=== PATIENT | female | born 1995 | race African-American/Black ===

== ENCOUNTER 2016-10-22 19:21 | Emergency (ER) | payer OTHER, SELFPAY ==
[2016-10-22] MEDS ORDERED: METOCLOPRAMIDE INJ 10MG/2ML VIAL (J2765) As Ordered ONE (20:59)
[2016-10-22 21:59] LABS: ANION GAP 11 MEQ/L (8-16); BLOOD UREA NITROGEN 5 MG/DL (7-18); CALCIUM LEVEL 9.4 MG/DL (8.5-10.1); CARBON DIOXIDE LEVEL 24 MEQ/L (21-32); CHLORIDE LEVEL 102 MEQ/L (98-107); CREATININE FOR GFR 0.76 MG/DL (0.55-1.02); GLOMERULAR FILTRATION RATE > 60.0 (>60); GLUCOSE, FASTING 80 MG/DL (70-105); POTASSIUM SERUM 3.4 MEQ/L (3.5-5.1); SODIUM LEVEL 137 MEQ/L (136-145)
--- NOTE | 2016-10-22 23:23 | EDDOCDS ---
Physician Documentation [facility] Name: Deanna Price Age: 21 yrs Sex: Female : 1995 Arrival Date: 10/22/2016 Time: 19:21 Bed I5 / M5 Private MD: Tana [facility] [place] Disposition: 10/22/16 23:01 Discharged to Home/Self Care. Impression: Mild hyperemesis gravidarum. - Condition is Stable. - Discharge Instructions: First Trimester of , Hyperemesis Gravidarum. - Prescriptions for Diclegis 10- 10 mg Oral - take 2 tablets by ORAL route At bedtime; 30 tablet. - Medication Reconciliation, Local Pharmacy Hours form. - Follow up: [facility] [place]; When: Call to arrange an appointment; Reason: Recheck today's complaints, Continuance of care. Follow up: Emergency Department; When: As needed; Reason: Worsening of conditions. - Problem is new. - Symptoms have improved. Historical: - Allergies: Nuts; seafood; - Home Meds: 1. albuterol sulfate 90 mcg/actuation Inhl HFAA 2 puffs every 4-6 hours 2. Vitamin Oral tab 1 tab once daily - PMHx: Asthma; - PSHx: none; - Social history: No barriers to communication noted, The patient speaks fluent Serbian, Speaks appropriately for age, Smoking status: Patient states was never smoker of tobacco. - Family history: Not pertinent. - : The pt / caregiver states he / she is not on anticoagulants. Home medication list is obtained from the patient. - Exposure Risk Screening:: None identified. 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 3 in. (160.02 cm) (R); Pain 3/10; 23:04 BP 122 / 69; Pulse 110; Resp 18; Temp 97.8; Pulse Ox 98% ; Pain 0/10; ajs 19:22 Body Mass Index 35.43 (90.72 kg, 160.02 cm) gr2 MDM: 20:38 IV Saline Lock ordered. ar2 20:38 NS 0.9% 1000 ml IV at bolus once ordered. ar2 20:38 Metoclopramide 10 mg IV at 40 mg/hr once over 15 mins ordered. ar2 20:39 MED Profile Ordered. EDMS 20:39 UA Ordered. EDMS 21:09 Financial registration complete. gjb 21:10 [facility] Payment Agreement was scanned into [employer] and attached to record. gjb 21:39 Fluid Challenge ordered. ar2 22:17 MED Profile Reviewed. ar2 22:17 UA Reviewed. ar2 22:20 Urine Culture Ordered. EDMS Administered Medications: 21:05 Drug: NS 0.9% 1000 ml [sodium chloride 0.9 % intravenous solution] Route: IV; Rate: js15 bolus; Site: left antecubital; 22:30 Follow up: IV Status: Completed infusion; IV Intake: 1000ml js15 21:05 Drug: Metoclopramide 10 mg [metoclopramide 5 mg/mL injection solution] Route: IV; Rate: js15 40 mg/hr; Infused Over: 15 mins; Site: left antecubital; Signatures: Dispatcher [employer] EDOR Patsy Jiménez RN RN jo3 Matteo Arguello PA-C PA-C ar2 Skylar Parker RN RN js15 Marlys Martines The chart was reviewed and I authenticate all verbal orders and agree with the evaluation and treatment provided.Attachments: 21:10 [facility] Payment Agreement gjb MTDD
--- NOTE | 2016-10-22 23:23 | EDDOCDS ---
Nurse's Notes [facility] Name: Deanna Price Age: 21 yrs Sex: Female : 1995 Arrival Date: 10/22/2016 Time: 19:21 Bed I5 / M5 Private MD: [place] [facility] [place]: Mild hyperemesis gravidarum Presentation: 10/22 19:27 Presenting complaint: Patient states: 9 weeks and has had severe morning jo3 sickness. Given Reglan while at home in [place] but it didn't work. Adult Sepsis Screening: The patient does not have new or worsening altered mentation. Patient's respiratory rate is less than 22. Systolic blood pressure is greater than 100. Patient has a qSOFA score of 0- Negative Sepsis Screen. Suicide/Homicide risk assessment- the patient denies having any suicidal and/or homicidal ideations and does not present with any other emotional, behavioral or mental health complaints. Status: The patient is a dependent. Transition of care: patient was not received from another setting of care. 19:27 Acuity: ANDRIY Level 3 jo3 19:27 Method Of Arrival: Walkin/Carried/Asstd jo3 Triage Assessment: 19:31 General: Appears in no apparent distress, Behavior is appropriate for age, cooperative. jo3 HIV screening NA for this visit Offered previously. Neurological: Level of Consciousness is awake, alert, Oriented to person, place, time. Respiratory: Airway is patent Respiratory effort is even, unlabored. Derm: No deficits noted. 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 albuterol sulfate 90 mcg/actuation Inhl HFAA 2 puffs every 4-6 hours 2. Vitamin Oral tab 1 tab once daily - PMHx: Asthma; - PSHx: none; - Social history: No barriers to communication noted, The patient speaks fluent Occitan, Speaks appropriately for age, Smoking status: Patient states was never smoker of tobacco. - Family history: Not pertinent. - : The pt / caregiver states he / she is not on anticoagulants. Home medication list is obtained from the patient. - Exposure Risk Screening:: None identified. Screenin:00 Screening information is obtained from the patient. Fall risk: No risks identified. js15 Assistance ADL's: requires no assistance with activities of daily living. Abuse/DV Screen: The patient / caregiver reports he/she is: not in a situation that causes fear, pain or injury. Nutritional screening: No deficits noted. Advance Directives: There is no active DNR order. home support is adequate. Assessment: 21:00 General: Appears in no apparent distress, Behavior is appropriate for age, cooperative, js15 pleasant. Pain: Denies pain. Neurological: Level of Consciousness is awake, alert, obeys commands, Oriented to person, place, time. Respiratory: Airway is patent Respiratory effort is even, unlabored, Respiratory pattern is regular, symmetrical. GI: Abdomen is non- distended Bowel sounds present X 4 quads. Abd is soft X 4 quads Reports nausea, vomiting. Derm: Skin is normal. 22:20 Reassessment: Patient appears in no apparent distress at this time. Pt sitting up, js15 watching tv and eating diet tray; reports relief of nausea. respirations even and unlabored; skin normal, warm, dry;. 23:19 Reassessment: Patient appears in no apparent distress at this time. Patient denies pain js15 at this time. Patient states feeling better. Patient states symptoms have improved. pt resting on stretcher, respirations even and unlabored; skin normal, warm, dry. Vital Signs: 19:22 BP 121 / 53; Pulse 119; Resp 18 S; Temp 96.4(O); Pulse Ox 98% on R/A; Weight 90.72 kg gr2 (R); Height 5 ft. 3 in. (160.02 cm) (R); Pain 3/10; 23:04 BP 122 / 69; Pulse 110; Resp 18; Temp 97.8; Pulse Ox 98% ; Pain 0/10; ajs 19:22 Body Mass Index 35.43 (90.72 kg, 160.02 cm) gr2 Vitals: 19:22 Log In Time: October 22, 2016 at 19:22. gr2 ED Course: 19:22 Patient visited by Breanna Laurent. gr2 19:22 [place] [facility] [place]ician. gr2 19:22 Patient moved to Waiting gr2 19:24 Patient visited by Breanna Laurent. gr2 19:24 Patient moved to Pre RCE gr2 19:30 Triage Initiated jo3 19:32 Patient visited by Patsy Jiménez RN. jo3 20:10 Patient moved to Triage 3 jf3 20:21 Matteo Arguello PA-C is PHCP. ar2 20:21 Real Mariano DO is Attending Physician. ar2 20:21 Patient visited by Matteo Arguello PA-C. ar2 20:40 Patient moved to I5 / lf1 21:00 The patient / caregiver is instructed regarding the plan of care and ED course. js15 21:00 Inserted saline lock: 20 gauge in left antecubital area The patient tolerated the js15 procedure well. 21:05 UA Sent. js15 21:05 MED Profile Sent. js15 21:06 Patient visited by Skylar Parker RN. js15 21:10 [facility] Payment Agreement was scanned into [employer] and attached to record. gjb 21:51 Patient visited by Skylar Parker RN. js15 22:21 Urine Culture Sent. js15 22:50 Patient visited by Skylar Parker RN. js15 23:01 AMRIK Puentes is Referral Physician. ar2 23:05 Patient visited by Yamileth Cavazos. ajs 23:19 No procedures done that require assistance. js15 Administered Medications: 21:05 Drug: NS 0.9% 1000 ml [sodium chloride 0.9 % intravenous solution] Route: IV; Rate: js15 bolus; Site: left antecubital; 22:30 Follow up: IV Status: Completed infusion; IV Intake: 1000ml js15 21:05 Drug: Metoclopramide 10 mg [metoclopramide 5 mg/mL injection solution] Route: IV; Rate: js15 40 mg/hr; Infused Over: 15 mins; Site: left antecubital; Intake: 22:30 IV: 1000.00ml; Total: 1000.00ml. js15 Order Results: Lab Order: MED Profile; SPEC'M 10/22/16 20:56 Test: GLUCOSE, FASTING; Value: 80; Range: 70-105; Units: MG/DL; Status: F Test: BLOOD UREA NITROGEN; Value: 5; Range: 7-18; Abnormal: Below low normal; Units: MG/DL; Status: F Test: CREATININE FOR GFR; Value: 0.76; Range: 0.55-1.02; Units: MG/DL; Status: F Test: GLOMERULAR FILTRATION RATE; Value: > 60.0; Range: >60; Status: F Test: SODIUM LEVEL; Value: 137; Range: 136-145; Units: MEQ/L; Status: F Test: POTASSIUM SERUM; Value: 3.4; Range: 3.5-5.1; Abnormal: Below low normal; Units: MEQ/L; Status: F Test: CHLORIDE LEVEL; Value: 102; Range: 98-107; Units: MEQ/L; Status: F Test: CARBON DIOXIDE LEVEL; Value: 24; Range: 21-32; Units: MEQ/L; Status: F Test: ANION GAP; Value: 11; Range: 8-16; Units: MEQ/L; Status: F Test: CALCIUM LEVEL; Value: 9.4; Range: 8.5-10.1; Units: MG/DL; Status: F Test Note: ; Units are mL/min/1.73 m2 Chronic Kidney Disease Staging per NKF: Stage I & II GFR >=60 Normal to Mildly Decreased Stage III GFR 30-59 Moderately Decreased Stage IV GFR 15-29 Severely Decreased Stage V GFR <15 Very Little GFR Left ESRD GFR <15 on PV DESIGN ENGINEER Lab Order: UA; SPEC'M 10/22/16 20:56 Test: APPEARANCE, URINE; Value: CLEAR; Range: CLEAR; Status: F Test: COLOR, URINE; Value: EDITA; Range: YELLOW; Status: F Test: PH,URINE; Value: 5.0; Range: 5.0-9.0; Units: UNITS; Status: F Test: SPECIFIC GRAVITY URINE AUTO; Value: 1.021; Range: 1.002-1.035; Status: F Test: PROTEIN, URINE AUTO; Value: 1+; Range: NEGATIVE; Abnormal: Above high normal; Units: mg/dL; Status: F Test: GLUCOSE, URINE (UA) AUTO; Value: NEGATIVE; Range: NEGATIVE; Units: mg/dL; Status: F Test: KETONE, URINE AUTO; Value: 2+; Range: NEGATIVE; Abnormal: Above high normal; Units: mg/dL; Status: F Test: UROBILINOGEN, URINE AUTO; Value: 4.0; Range: 0.0-2.0; Abnormal: Above high normal; Units: mg/dL; Status: F Test: BILIRUBIN, URINE AUTO; Value: 1+; Range: NEGATIVE; Abnormal: Above high normal; Status: F Test: NITRITE, URINE AUTO; Value: NEGATIVE; Range: NEGATIVE; Status: F Test: LEUKOCYTE ESTERASE, URINE AUTO; Value: NEGATIVE; Range: NEGATIVE; Status: F Test: BLOOD, URINE BLOOD; Value: NEGATIVE; Range: NEGATIVE; Status: F Test: WBC, URINE AUTO; Value: 2; Range: 0-3; Units: /HPF; Status: F Test: RBC, URINE AUTO; Value: 1; Range: 0-3; Units: /HPF; Status: F Test: BACTERIA, URINE AUTO; Value: 1+; Range: NEGATIVE; Abnormal: Above high normal; Status: F Test: SQUAMOUS EPITHELIAL CELL UR AU; Value: 1; Range: 0-6; Units: /HPF; Status: F Test: MUCUS, URINE; Value: SMALL; Range: NEGATIVE; Status: F Test: HYALINE CAST, URINE AUTO; Value: 0; Range: 0-1; Units: /LPF; Status: F Outcome: 23:01 Discharge ordered by Provider. ar2 23:19 Discharge Assessment: Patient awake, alert and oriented x 3. No cognitive and/or js15 functional deficits noted. Patient verbalized understanding of disposition instructions. patient administered narcotics - no. The following High Risk Discharge criteria are identified: None. Discharged to home ambulatory. Condition: stable. Discharge instructions given to patient, Instructed on discharge instructions, follow up and referral plans. medication usage, Demonstrated understanding of instructions, medications, Pt was receptive of discharge instructions/ teaching. Prescriptions given X 1. No special radiology studies were completed. Property sent home with patient. 23:22 Patient left the ED. js15 Signatures: Patsy JiménezRN RN [email or web address] Tarsha Bowers,RN RN lf1 Matteo Arguello PA-C PANicholasC ar2 Yamileth Cavazos Gainslee gr2 Skylar Parker RN RN js15 Anshu Steele,RN RN jf3 Marlys Martines MTDD
--- NOTE | 2016-10-25 00:23 | EDDOCDS ---
Nurse's Notes [facility] Name: Deanna Price Age: 21 yrs Sex: Female : 1995 Arrival Date: 10/22/2016 Time: 19:21 Bed I5 / M5 Private MD: Tana [facility] [place] Diagnosis: Mild hyperemesis gravidarum Presentation: 10/22 19:27 Presenting complaint: Patient states: 9 weeks and has had severe morning jo3 sickness. Given Reglan while at home in [place] but it didn't work. Adult Sepsis Screening: The patient does not have new or worsening altered mentation. Patient's respiratory rate is less than 22. Systolic blood pressure is greater than 100. Patient has a qSOFA score of 0- Negative Sepsis Screen. Suicide/Homicide risk assessment- the patient denies having any suicidal and/or homicidal ideations and does not present with any other emotional, behavioral or mental health complaints. Status: The patient is a dependent. Transition of care: patient was not received from another setting of care. 19:27 Acuity: ANRDIY Level 3 jo3 19:27 Method Of Arrival: Walkin/Carried/Asstd jo3 Triage Assessment: 19:31 General: Appears in no apparent distress, Behavior is appropriate for age, cooperative. jo3 HIV screening NA for this visit Offered previously. Neurological: Level of Consciousness is awake, alert, Oriented to person, place, time. Respiratory: Airway is patent Respiratory effort is even, unlabored. Derm: No deficits noted. 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 albuterol sulfate 90 mcg/actuation Inhl HFAA 2 puffs every 4-6 hours 2. Vitamin Oral tab 1 tab once daily - PMHx: Asthma; - PSHx: none; - Social history: No barriers to communication noted, The patient speaks fluent Tajik, Speaks appropriately for age, Smoking status: Patient states was never smoker of tobacco. - Family history: Not pertinent. - : The pt / caregiver states he / she is not on anticoagulants. Home medication list is obtained from the patient. - Exposure Risk Screening:: None identified. Screenin:00 Screening information is obtained from the patient. Fall risk: No risks identified. js15 Assistance ADL's: requires no assistance with activities of daily living. Abuse/DV Screen: The patient / caregiver reports he/she is: not in a situation that causes fear, pain or injury. Nutritional screening: No deficits noted. Advance Directives: There is no active DNR order. home support is adequate. Assessment: 21:00 General: Appears in no apparent distress, Behavior is appropriate for age, cooperative, js15 pleasant. Pain: Denies pain. Neurological: Level of Consciousness is awake, alert, obeys commands, Oriented to person, place, time. Respiratory: Airway is patent Respiratory effort is even, unlabored, Respiratory pattern is regular, symmetrical. GI: Abdomen is non- distended Bowel sounds present X 4 quads. Abd is soft X 4 quads Reports nausea, vomiting. Derm: Skin is normal. 22:20 Reassessment: Patient appears in no apparent distress at this time. Pt sitting up, js15 watching tv and eating diet tray; reports relief of nausea. respirations even and unlabored; skin normal, warm, dry;. 23:19 Reassessment: Patient appears in no apparent distress at this time. Patient denies pain js15 at this time. Patient states feeling better. Patient states symptoms have improved. pt resting on stretcher, respirations even and unlabored; skin normal, warm, dry. Vital Signs: 19:22 BP 121 / 53; Pulse 119; Resp 18 S; Temp 96.4(O); Pulse Ox 98% on R/A; Weight 90.72 kg gr2 (R); Height 5 ft. 3 in. (160.02 cm) (R); Pain 3/10; 23:04 BP 122 / 69; Pulse 110; Resp 18; Temp 97.8; Pulse Ox 98% ; Pain 0/10; ajs 19:22 Body Mass Index 35.43 (90.72 kg, 160.02 cm) gr2 Vitals: 19:22 Log In Time: October 22, 2016 at 19:22. gr2 ED Course: 19:22 Patient visited by Breanna Laurent. gr2 19:22 Tana [facility] [place] is Private Physician. gr2 19:22 Patient moved to Waiting gr2 19:24 Patient visited by Breanna Laurent. gr2 19:24 Patient moved to Pre RCE gr2 19:30 Triage Initiated jo3 19:32 Patient visited by Patsy Jiménez RN. jo3 20:10 Patient moved to Triage 3 jf3 20:21 Matteo Arguello PA-C is PHCP. ar2 20:21 Real Mariano DO is Attending Physician. ar2 20:21 Patient visited by Matteo Arguello PA-C. ar2 20:40 Patient moved to I5 / lf1 21:00 The patient / caregiver is instructed regarding the plan of care and ED course. js15 21:00 Inserted saline lock: 20 gauge in left antecubital area The patient tolerated the js15 procedure well. 21:05 UA Sent. js15 21:05 MED Profile Sent. js15 21:06 Patient visited by Skylar Parker RN. js15 21:10 [facility] Payment Agreement was scanned into [employer] and attached to record. gjb 21:51 Patient visited by Skylar Parker RN. js15 22:21 Urine Culture Sent. js15 22:50 Patient visited by Skylar Parker RN. js15 23:01 AMRIK Puentes is Referral Physician. ar2 23:05 Patient visited by Yamileth Cavazos. ajs 23:19 No procedures done that require assistance. js15 02 12:13 T-Sheet-- Draft Copy was scanned into [employer] and attached to record. gb Administered Medications: 10/22 21:05 Drug: NS 0.9% 1000 ml [sodium chloride 0.9 % intravenous solution] Route: IV; Rate: js15 bolus; Site: left antecubital; 22:30 Follow up: IV Status: Completed infusion; IV Intake: 1000ml js15 21:05 Drug: Metoclopramide 10 mg [metoclopramide 5 mg/mL injection solution] Route: IV; Rate: js15 40 mg/hr; Infused Over: 15 mins; Site: left antecubital; Intake: 22:30 IV: 1000.00ml; Total: 1000.00ml. js15 Order Results: Lab Order: MED Profile; SPEC'M 10/22/16 20:56 Test: GLUCOSE, FASTING; Value: 80; Range: 70-105; Units: MG/DL; Status: F Test: BLOOD UREA NITROGEN; Value: 5; Range: 7-18; Abnormal: Below low normal; Units: MG/DL; Status: F Test: CREATININE FOR GFR; Value: 0.76; Range: 0.55-1.02; Units: MG/DL; Status: F Test: GLOMERULAR FILTRATION RATE; Value: > 60.0; Range: >60; Status: F Test: SODIUM LEVEL; Value: 137; Range: 136-145; Units: MEQ/L; Status: F Test: POTASSIUM SERUM; Value: 3.4; Range: 3.5-5.1; Abnormal: Below low normal; Units: MEQ/L; Status: F Test: CHLORIDE LEVEL; Value: 102; Range: 98-107; Units: MEQ/L; Status: F Test: CARBON DIOXIDE LEVEL; Value: 24; Range: 21-32; Units: MEQ/L; Status: F Test: ANION GAP; Value: 11; Range: 8-16; Units: MEQ/L; Status: F Test: CALCIUM LEVEL; Value: 9.4; Range: 8.5-10.1; Units: MG/DL; Status: F Test Note: ; Units are mL/min/1.73 m2 Chronic Kidney Disease Staging per NKF: Stage I & II GFR >=60 Normal to Mildly Decreased Stage III GFR 30-59 Moderately Decreased Stage IV GFR 15-29 Severely Decreased Stage V GFR <15 Very Little GFR Left ESRD GFR <15 on CASINO SURVEILLANCE OFFICER Lab Order: UA; SPEC'M 10/22/16 20:56 Test: APPEARANCE, URINE; Value: CLEAR; Range: CLEAR; Status: F Test: COLOR, URINE; Value: EDITA; Range: YELLOW; Status: F Test: PH,URINE; Value: 5.0; Range: 5.0-9.0; Units: UNITS; Status: F Test: SPECIFIC GRAVITY URINE AUTO; Value: 1.021; Range: 1.002-1.035; Status: F Test: PROTEIN, URINE AUTO; Value: 1+; Range: NEGATIVE; Abnormal: Above high normal; Units: mg/dL; Status: F Test: GLUCOSE, URINE (UA) AUTO; Value: NEGATIVE; Range: NEGATIVE; Units: mg/dL; Status: F Test: KETONE, URINE AUTO; Value: 2+; Range: NEGATIVE; Abnormal: Above high normal; Units: mg/dL; Status: F Test: UROBILINOGEN, URINE AUTO; Value: 4.0; Range: 0.0-2.0; Abnormal: Above high normal; Units: mg/dL; Status: F Test: BILIRUBIN, URINE AUTO; Value: 1+; Range: NEGATIVE; Abnormal: Above high normal; Status: F Test: NITRITE, URINE AUTO; Value: NEGATIVE; Range: NEGATIVE; Status: F Test: LEUKOCYTE ESTERASE, URINE AUTO; Value: NEGATIVE; Range: NEGATIVE; Status: F Test: BLOOD, URINE BLOOD; Value: NEGATIVE; Range: NEGATIVE; Status: F Test: WBC, URINE AUTO; Value: 2; Range: 0-3; Units: /HPF; Status: F Test: RBC, URINE AUTO; Value: 1; Range: 0-3; Units: /HPF; Status: F Test: BACTERIA, URINE AUTO; Value: 1+; Range: NEGATIVE; Abnormal: Above high normal; Status: F Test: SQUAMOUS EPITHELIAL CELL UR AU; Value: 1; Range: 0-6; Units: /HPF; Status: F Test: MUCUS, URINE; Value: SMALL; Range: NEGATIVE; Status: F Test: HYALINE CAST, URINE AUTO; Value: 0; Range: 0-1; Units: /LPF; Status: F Lab Order: Urine Culture; SPEC'M 10/22/16 20:54 Test: URINE CULTURE; Value: <EXTERNAL COMMENT eCWMed> FULL REPORT IN LAB NOTES (eCW and [facility]ent).; Status: F Test: URINE CULTURE; Value: URINE CULTURE RESULT NO GROWTH; Status: F Outcome: 23:01 Discharge ordered by Provider. ar2 23:19 Discharge Assessment: Patient awake, alert and oriented x 3. No cognitive and/or js15 functional deficits noted. Patient verbalized understanding of disposition instructions. patient administered narcotics - no. The following High Risk Discharge criteria are identified: None. Discharged to home ambulatory. Condition: stable. Discharge instructions given to patient, Instructed on discharge instructions, follow up and referral plans. medication usage, Demonstrated understanding of instructions, medications, Pt was receptive of discharge instructions/ teaching. Prescriptions given X 1. No special radiology studies were completed. Property sent home with patient. 23:22 Patient left the ED. js15 Signatures: Orly Edmondson, Patsy Arthur RN RN [email or web address] Tarsha Bowers,RN RN lf1 Matteo Arguello, PA-C PA-C alejo2 Yamileth Cavazos Gainslee gr2 Skylar ParkerRN RN js15 Anshu Steele,RN RN jf3 Marlys Martines Chart Complete MTDD
--- NOTE | 2016-10-25 00:23 | EDDOCDS ---
Physician Documentation [facility] Name: Deanna Price Age: 21 yrs Sex: Female : 1995 Arrival Date: 10/22/2016 Time: 19:21 Bed I5 / M5 Private MD: Tana [facility] [place] Disposition: 10/22/16 23:01 Discharged to Home/Self Care. Impression: Mild hyperemesis gravidarum. - Condition is Stable. - Discharge Instructions: First Trimester of , Hyperemesis Gravidarum. - Prescriptions for Diclegis 10- 10 mg Oral - take 2 tablets by ORAL route At bedtime; 30 tablet. - Medication Reconciliation, Local Pharmacy Hours form. - Follow up: [facility] [place]; When: Call to arrange an appointment; Reason: Recheck today's complaints, Continuance of care. Follow up: Emergency Department; When: As needed; Reason: Worsening of conditions. - Problem is new. - Symptoms have improved. Historical: - Allergies: Nuts; seafood; - Home Meds: 1. albuterol sulfate 90 mcg/actuation Inhl HFAA 2 puffs every 4-6 hours 2. Vitamin Oral tab 1 tab once daily - PMHx: Asthma; - PSHx: none; - Social history: No barriers to communication noted, The patient speaks fluent Sami, Speaks appropriately for age, Smoking status: Patient states was never smoker of tobacco. - Family history: Not pertinent. - : The pt / caregiver states he / she is not on anticoagulants. Home medication list is obtained from the patient. - Exposure Risk Screening:: None identified. HOME SPECIALIST: 10/22 19:32 3, Full Term 2, Premature 0, 0, Living 2, LMP 08/18/2016 jo3 Vital Signs: 19:22 BP 121 / 53; Pulse 119; Resp 18 S; Temp 96.4(O); Pulse Ox 98% on R/A; Weight 90.72 kg / gr2 200 lbs (R); Height 5 ft. 3 in. (160.02 cm) (R); Pain 3/10; 23:04 BP 122 / 69; Pulse 110; Resp 18; Temp 97.8; Pulse Ox 98% ; Pain 0/10; ajs 19:22 Body Mass Index 35.43 (90.72 kg, 160.02 cm) gr2 MDM: 20:38 IV Saline Lock ordered. ar2 20:38 NS 0.9% 1000 ml IV at bolus once ordered. ar2 20:38 Metoclopramide 10 mg IV at 40 mg/hr once over 15 mins ordered. ar2 20:39 MED Profile Ordered. EDMS 20:39 UA Ordered. EDMS 21:09 Financial registration complete. gjb 21:10 [facility] Payment Agreement was scanned into C[employer] and attached to record. gjb 21:39 Fluid Challenge ordered. ar2 22:17 MED Profile Reviewed. ar2 22:17 UA Reviewed. ar2 22:20 Urine Culture Ordered. EDMS 10/23 12:13 T-Sheet-- Draft Copy was scanned into C[employer] io and attached to record. gb Administered Medications: 10/22 21:05 Drug: NS 0.9% 1000 ml [sodium chloride 0.9 % intravenous solution] Route: IV; Rate: js15 bolus; Site: left antecubital; 22:30 Follow up: IV Status: Completed infusion; IV Intake: 1000ml js15 21:05 Drug: Metoclopramide 10 mg [metoclopramide 5 mg/mL injection solution] Route: IV; Rate: js15 40 mg/hr; Infused Over: 15 mins; Site: left antecubital; Signatures: Dispatcher [employer] [facility] Orly Edmondson, Reg Reg gb Patsy Jiménez RN RN jo3 Matteo Arguello, PAClayton PAClayton ar2 Skylar Parker RN RN js15 Marlys Martines The chart was reviewed and I authenticate all verbal orders and agree with the evaluation and treatment provided.Attachments: :10 [facility] Payment Agreement [facility] 10/23 12:13 T-Sheet-- Draft Copy gb Chart Complete MTDD
--- NOTE | 2016-10-25 00:23 | EDDOCDS ---
Physician Documentation [facility] Name: Deanna Price Age: 21 yrs Sex: Female : 1995 Arrival Date: 10/22/2016 Time: 19:21 Bed I5 / M5 Private MD: Tana [facility] [place] Disposition: 10/22/16 23:01 Discharged to Home/Self Care. Impression: Mild hyperemesis gravidarum. - Condition is Stable. - Discharge Instructions: First Trimester of , Hyperemesis Gravidarum. - Prescriptions for Diclegis 10- 10 mg Oral - take 2 tablets by ORAL route At bedtime; 30 tablet. - Medication Reconciliation, Local Pharmacy Hours form. - Follow up: [facility] [place]; When: Call to arrange an appointment; Reason: Recheck today's complaints, Continuance of care. Follow up: Emergency Department; When: As needed; Reason: Worsening of conditions. - Problem is new. - Symptoms have improved. Historical: - Allergies: Nuts; seafood; - Home Meds: 1. albuterol sulfate 90 mcg/actuation Inhl HFAA 2 puffs every 4-6 hours 2. Vitamin Oral tab 1 tab once daily - PMHx: Asthma; - PSHx: none; - Social history: No barriers to communication noted, The patient speaks fluent Romanian, Speaks appropriately for age, Smoking status: Patient states was never smoker of tobacco. - Family history: Not pertinent. - : The pt / caregiver states he / she is not on anticoagulants. Home medication list is obtained from the patient. - Exposure Risk Screening:: None identified. PUBLIC HEALTH EPIDEMIOLOGIST: 10/22 19:32 3, Full Term 2, Premature 0, 0, Living 2, LMP 08/18/2016 jo3 Vital Signs: 19:22 BP 121 / 53; Pulse 119; Resp 18 S; Temp 96.4(O); Pulse Ox 98% on R/A; Weight 90.72 kg / gr2 200 lbs (R); Height 5 ft. 3 in. (160.02 cm) (R); Pain 3/10; 23:04 BP 122 / 69; Pulse 110; Resp 18; Temp 97.8; Pulse Ox 98% ; Pain 0/10; ajs 19:22 Body Mass Index 35.43 (90.72 kg, 160.02 cm) gr2 MDM: 20:38 IV Saline Lock ordered. ar2 20:38 NS 0.9% 1000 ml IV at bolus once ordered. ar2 20:38 Metoclopramide 10 mg IV at 40 mg/hr once over 15 mins ordered. ar2 20:39 MED Profile Ordered. EDMS 20:39 UA Ordered. EDMS 21:09 Financial registration complete. gjb 21:10 [facility] Payment Agreement was scanned into [employer] and attached to record. gjb 21:39 Fluid Challenge ordered. ar2 22:17 MED Profile Reviewed. ar2 22:17 UA Reviewed. ar2 22:20 Urine Culture Ordered. EDMS 10/23 12:13 T-Sheet-- Draft Copy was scanned into Ze[employer] and attached to record. gb Administered Medications: 10/22 21:05 Drug: NS 0.9% 1000 ml [sodium chloride 0.9 % intravenous solution] Route: IV; Rate: js15 bolus; Site: left antecubital; 22:30 Follow up: IV Status: Completed infusion; IV Intake: 1000ml js15 21:05 Drug: Metoclopramide 10 mg [metoclopramide 5 mg/mL injection solution] Route: IV; Rate: js15 40 mg/hr; Infused Over: 15 mins; Site: left antecubital; Signatures: Dispatcher [employer] [facility] Orly Edmondson, Reg Reg gb Patsy Jiménez RN RN jo3 Matteo Arguello, PAClayton PAClayton ar2 Skylar Parker RN RN js15 Marlys Martines The chart was reviewed and I authenticate all verbal orders and agree with the evaluation and treatment provided.Attachments: :10 [facility] Payment Agreement [facility] 10/23 12:13 T-Sheet-- Draft Copy gb Chart Complete MTDD
== END 2016-10-22 23:22 | disposition home or self-care (01) ==
LOC: M ED 19:21
DX: O21.0 Mild hyperemesis gravidarum (principal); Z3A.09 9 weeks gestation of pregnancy; O99.511 Diseases of the respiratory system complicating pregnancy, first trimester; Z79.51 Long term (current) use of inhaled steroids; Z91.010 Allergy to peanuts; Z91.013 Allergy to seafood
CPT/HCPCS: 80048; 81001; 87086; 96361; 96374; 99284; J2765

== ENCOUNTER → 2017-03-31 | Outpatient (CLI) | payer OTHER ==
[~2017-03-31] MED LIST: ADV250INH; ALBU17IN INH; COLA100C5 PO; DIBU10OI TOP; MOTR200T44 PO; PRENTAB55 PO; PROAAER10; TUMS500C PO; TYLE325T5 PO
--- NOTE | 2017-03-31 23:43 | REP ---
Clinical: well-being . Comparison: None . Findings: Examination demonstrates a single live intrauterine in cephalic presentation. motion is identified by technologist. Placenta is noted posteriorly and grade one without evidence for placenta previa or abruption. Amniotic fluid volume is normal. Cervix measures 3.1 cm in length and appears closed. No evidence for nuchal cord. Gestational age by LMP 32 weeks 1 day with JAG 05/25/2017 . Gestational age by current measurements 32 weeks 4 days with JAG 05/22/2017 . FHR equals 139 beats per minute. BPD 8.2 cm 33 weeks 0 days HC 29.3 cm 32 weeks 3 days AC 28.1 cm 32 weeks 1 day FL 6.3 cm 32 weeks 5 days HL 5.7 cm 33 weeks 0 days HC/AC ratio 1.04 Estimated weight 1965 grams ( 49th percentile). Amniotic fluid volume index equals 13.7 cm ( 8.6 - 24.2 ). Umbilical cord SD ratio equals 2.03 Anatomical assessment demonstrates normal structures including cranium, choroid plexus, cavum, cerebellum/posterior fossa, nose/lips , lungs, diaphragm, stomach, three-vessel cord, kidneys/bladder, spine, and lower extremities. Impression: Single live intrauterine in cephalic presentation demonstrating appropriate interval growth. Anatomical limitations due to advanced age. No gross abnormality identified. Signed by Jose Paige MD 03/31/2017 11:35 P
== END ==
LOC: M RAD 13:53
PROVIDERS: ATTEND Obstetrics & Gynecology
DX: Z36 Encounter for antenatal screening of mother (principal); Z3A.32 32 weeks gestation of pregnancy

== ENCOUNTER 2017-04-06 18:34 | Emergency (ER) | payer OTHER ==
[~2017-04-06] VITALS: Ht 160 cm; Wt 100.8 kg
[2017-04-06] MEDS ORDERED: ADV250INH (18:44)
[2017-04-06] MEDS ORDERED: PROAAER10 (18:44)
[2017-04-06] MEDS ORDERED: ALBUTEROL 90 MCG/ACT 8GM HFA INHALER INH ONE (19:30)
[2017-04-06] MEDS ORDERED: ALBU17IN INH (19:56)
[2017-04-06 20:00] VITALS: BP 123/68
--- NOTE | 2017-04-07 13:40 | ECGEPIP ---
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
== END 2017-04-06 20:10 | disposition home or self-care (01) ==
LOC: M ED 18:34
DX: R07.89 Other chest pain (principal); J45.909 Unspecified asthma, uncomplicated; Z91.010 Allergy to peanuts; Z91.013 Allergy to seafood

== ENCOUNTER 2017-04-14 19:21 | Emergency (ER) | payer OTHER ==
[~2017-04-14] VITALS: Ht 160 cm; Wt 101.7 kg
[2017-04-14 19:21] VITALS: BP 135/73
[~2017-04-14 19:21] MED LIST changes: -COLA100C5 PO; -DIBU10OI TOP; -MOTR200T44 PO; -PRENTAB55 PO; -TUMS500C PO; -TYLE325T5 PO
[2017-04-14] MEDS ORDERED: ALBUTEROL 90 MCG/ACT 8GM HFA INHALER INH ONE (20:00)
== END 2017-04-14 20:02 | disposition home or self-care (01) ==
LOC: M ED 19:21
DX: Z76.0 Encounter for issue of repeat prescription (principal); O99.513 Diseases of the respiratory system complicating pregnancy, third trimester; Z3A.34 34 weeks gestation of pregnancy; Z79.899 Other long term (current) drug therapy; Z91.010 Allergy to peanuts; Z91.013 Allergy to seafood

== ENCOUNTER 2017-04-22 19:03 | Outpatient (CLI) | payer OTHER ==
[~2017-04-22] VITALS: Ht 160 cm; Wt 96.0 kg
[2017-04-22 19:24] VITALS: BP 115/62
[2017-04-22 20:43] VITALS: BP 121/58
== END 2017-04-22 22:00 | disposition home or self-care (01) ==
LOC: M LDO 19:03
PROVIDERS: ATTEND Obstetrics & Gynecology
DX: O47.03 False labor before 37 completed weeks of gestation, third trimester (principal); Z3A.35 35 weeks gestation of pregnancy; R10.9 Unspecified abdominal pain; O99.513 Diseases of the respiratory system complicating pregnancy, third trimester; Z91.013 Allergy to seafood; Z91.010 Allergy to peanuts

== ENCOUNTER 2017-05-04 01:35 | Outpatient (CLI) | payer OTHER ==
[2017-05-04 02:04] VITALS: BP 132/76
== END 2017-05-04 01:56 | disposition admitted as inpatient to this hospital (09) ==
LOC: M LDO 01:35
PROVIDERS: ATTEND Obstetrics & Gynecology
DX: R07.89 Other chest pain (principal); J45.909 Unspecified asthma, uncomplicated; Z91.010 Allergy to peanuts; Z91.013 Allergy to seafood

== ENCOUNTER 2017-05-04 02:01 | Emergency (ER) | payer OTHER ==
[~2017-05-04] VITALS: Ht 160 cm; Wt 93.6 kg
[2017-05-04] MEDS ORDERED: ALBUTEROL 90 MCG/ACT 8GM HFA INHALER INH ONE (03:45)
[2017-05-04 03:47] VITALS: BP 122/77
--- NOTE | 2017-05-04 20:27 | ECGEPIP ---
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
== END 2017-05-04 03:53 | disposition admitted as inpatient to this hospital (09) ==
LOC: M ED 02:01
DX: O99.89 Other specified diseases and conditions complicating pregnancy, childbirth and the puerperium (principal); R07.9 Chest pain, unspecified; O62.0 Primary inadequate contractions; J45.909 Unspecified asthma, uncomplicated; Z79.899 Other long term (current) drug therapy; Z91.010 Allergy to peanuts; Z91.013 Allergy to seafood; Z3A.00 Weeks of gestation of pregnancy not specified

== ENCOUNTER 2017-05-04 03:55 | Inpatient (IN) | payer OTHER ==
[2017-05-04] VITALS (38 sets, daily range): BP systolic 86–196; BP diastolic 47–109
[2017-05-04] MEDS ORDERED: LR 1,000 ML IV SCH (04:41)
[2017-05-04] MEDS ORDERED: PENICILLIN G POTASSIUM IV 5 MU in D5W MINI-BAG PLUS 100 ML IV STA (04:41)
[2017-05-04] MEDS ORDERED: LACTATED RINGER'S 1000 ML IV ONE (04:45)
[2017-05-04 05:24] LABS: MEAN CORPUSCULAR HEMOGLOBIN 21.8 pg (27.0-33.0); MEAN CORPUSCULAR HGB CONC 33.3 g/dl (32.0-36.5); MEAN CORPUSCULAR VOLUME 65.5 fl (80.0-96.0); RED CELL DISTRIBUTION WIDTH 15.2 % (11.5-14.5); WHITE BLOOD COUNT 15.6 K/mm3 (4.0-10.0)
[2017-05-04 07:15] LABS: HBSAG L&D NEGATIVE (NEGATIVE)
[2017-05-04] MEDS ORDERED: FENTANYL 2MCG/ML ROPIVACAINE 0.2% IN 0.9% NACL 200ML IVBAG As Ordered ONE (07:54)
[2017-05-04] MEDS ORDERED: REFRIGERATOR IV KEYS XX PRN (09:00)
[2017-05-04] MEDS ORDERED: ONDANSETRON 4MG/2ML VIAL (J2405) IV PRN ×2 (09:00→15:00)
[2017-05-04] MEDS ORDERED: LACTATED RINGER'S 1000 ML IV PRN (09:00)
[2017-05-04] MEDS ORDERED: diphenhydrAMINE INJ 50MG/ML VIAL (J1200) IV PRN (09:00)
[2017-05-04] MEDS: PRENATAL VITAMINS CHEWABLE TABLET PO SCH (09:00)
[2017-05-04] MEDS ORDERED: EPIDURAL/PCA KEYS XX PRN (09:00)
[2017-05-04] MEDS ORDERED: ePHEDrine SULFATE 25 MG/5 ML(5MG/ML) SYRINGE IV PRN (09:00)
[2017-05-04] MEDS ORDERED: NALOXONE INJ 0.4 MG/1 ML VIAL (J2310) IV PRN (09:00)
[2017-05-04] MEDS ORDERED: EPIDURAL COMMENT XX SCH (09:00)
[2017-05-04] MEDS ORDERED: PENICILLIN G POTASSIUM IV 2.5 MU in D5W 100 ML IV SCH (09:00)
[2017-05-04] MEDS ORDERED: FENTANYL/ROPIVACAINE/NACL BAG 200 ML EPIDURAL SCH (09:00)
--- NOTE | 2017-05-04 09:38 | HPE ---
DATE OF ADMISSION: 05/04/2017 This lady is a 21-year-old 3, para 2, LMP 08/10/2016, EDC 05/25/2017 at 37 weeks of gestation. She has only had two visits at [place] and there is no blood work available. She came in because of severe chest pain, was evaluated by emergency. EKG was normal. No other issues were noted. Her risk factors is she has asthma and she was late entry to care with two visits. PAST HISTORY: In 2011 at 35 weeks had a delivery 5 pound female, vaginal and no issues. 2015 spontaneous vaginal delivery 37 weeks, male, 7 pounds 5 ounces after spontaneous rupture of membranes. On physical examination, she does not appear to be in any distress. Oxygen sats are 100%. She is sitting up and lying flat with no issues and there is no shortness of breath and no chest pain. Symphysis fundus height is 37, vertex presenting. Category 1 strip. She has copious amounts of amniotic fluid. Clear Liqui. No evidence of meconium. The head is well applied to the cervix 3 cm, minus three station, about 80% effaced and there are few contractions. Her hemoglobin is 10.7, hematocrit 32.1, platelets are 452. Blood pressure 132/76, respirations 18, pulse 84, temperature 98.1. Urine is 1.010, pH 7, negative, negative, negative. We have no labs. These were ordered today. In summary, we have a 37-week unknown Group B Streptococcus (GBS) status spontaneous rupture of membranes in active labor with minimal care. Our plan of management is to IV antibiotics prophylactically because of GBS status unknown. Epidural as needed. Notify neonatology and do the routine blood work including HIV and hepatitis review. The rest examination is unremarkable. She is normocephalic, atraumatic. Neck: Full range of motion. Pupils equal and reactive to light. Chest is clear bilaterally to bases. No wheezes or rhonchi. Thyroid is midline. No JVD or bruits. There is no evidence of DVT, PE or superficial phlebitis. Abdomen: Soft. Category 1. Obvious ruptured membranes and no rashes, lesions or pruritus. No arthralgia or myalgia. No complaints of cough, wheezes, shortness of breath at the present time. The chest pain is resolved. She was given Protonix for GI upset. No diabetic issues. No family, past surgical or medical issues. She does not smoke, drink, abuse drugs. There is no domestic violence. She is and has good supporting system. In summary, we have a 37-week gestation with short interval care, ruptured membranes. GBS status unknown. Anticipate vaginal delivery.
[2017-05-04] MEDS ORDERED: ACETAMINOPHEN 500 MG TAB PO PRN (11:00)
[2017-05-04] MEDS ORDERED: OXYTOCIN 30 UNITS IN 0.9% NaCl 500ML IV BAG (J2590) As Ordered ONE (14:41)
[2017-05-04] MEDS ORDERED: OXYTOCIN DRIP 30 UNITS in APPROPRIATE DILUENT 1 EA IV SCH (14:48)
[2017-05-04] MEDS ORDERED: ALBUTEROL SULFATE 2.5 MG/0.5 ML INH NEB SOLN NEB PRN (15:00)
[2017-05-04] MEDS ORDERED: MEASLES,MUMPS,RUBELLA VACCINE INJ (MMR-II) (90707) SC SCH (15:00)
[2017-05-04] MEDS ORDERED: RHOGAM 300 MCG (1500 IU) INJ (J2790) IM SCH (15:00)
[2017-05-04] MEDS ORDERED: DIBUCAINE 1% OINTMENT 30GM TOP PRN (15:00)
[2017-05-04] MEDS ORDERED: PROMETHAZINE 25 MG TAB PO PRN (15:00)
[2017-05-04] MEDS ORDERED: METHYLERGONOVINE MALEATE 0.2 MG/ML VIAL (J2210) IM PRN (15:00)
[2017-05-04] MEDS: ACETAMINOPHEN 500 MG TAB PO PRN (18:51)
[2017-05-04] MEDS: ADVAIR HFA 115/21MCG INHALER INH SCH (19:46)
[2017-05-04] MEDS ORDERED: CALCIUM CARBONATE 500 MG CHEW U/D PO PRN (20:30)
[2017-05-04] MEDS: DOCUSATE SODIUM 100 MG CAP PO SCH (20:47)
[2017-05-04] MEDS: IBUPROFEN 800 MG TAB PO PRN (20:48)
[2017-05-05 05:31] VITALS: BP 113/55
[2017-05-05] MEDS: ADVAIR HFA 115/21MCG INHALER INH SCH ×2 (08:07→19:41)
[2017-05-05] MEDS: DOCUSATE SODIUM 100 MG CAP PO SCH ×2 (08:31→20:05)
[2017-05-05] MEDS: PRENATAL VITAMINS CHEWABLE TABLET PO SCH (08:31)
[2017-05-05] MEDS: ACETAMINOPHEN 500 MG TAB PO PRN (08:32)
[2017-05-05] MEDS: IBUPROFEN 800 MG TAB PO PRN (13:21)
[2017-05-05 17:55] VITALS: BP 121/68
[2017-05-06] MEDS: ACETAMINOPHEN 500 MG TAB PO PRN (02:43)
[2017-05-06 06:19] VITALS: BP 133/67
[2017-05-06] MEDS: PRENATAL VITAMINS CHEWABLE TABLET PO SCH (07:54)
[2017-05-06] MEDS: IBUPROFEN 800 MG TAB PO PRN (07:54)
[2017-05-06] MEDS: DOCUSATE SODIUM 100 MG CAP PO SCH (07:54)
[2017-05-06] MEDS: ADVAIR HFA 115/21MCG INHALER INH SCH (07:59)
[2017-05-06] MEDS ORDERED: TUMS500C PO (08:22)
[2017-05-06] MEDS ORDERED: TYLE325T5 PO (08:22)
[2017-05-06] MEDS ORDERED: MOTR200T44 PO (08:22)
[2017-05-06] MEDS ORDERED: PRENTAB55 PO (08:22)
[2017-05-06] MEDS ORDERED: COLA100C5 PO (08:22)
[2017-05-06] MEDS ORDERED: DIBU10OI TOP (08:22)
== END 2017-05-06 11:20 | disposition home or self-care (01) | DRG 560 ==
LOC: M LDO 03:55 → M LDI 04:08 → M OBS 17:31
PROVIDERS: ADMIT Obstetrics & Gynecology; ATTEND Obstetrics & Gynecology
PROC: 10E0XZZ Delivery of Products of Conception, External Approach (ICD-10-PCS; principal; 2017-05-04)
DX: O80 Encounter for full-term uncomplicated delivery (principal); Z87.51 Personal history of pre-term labor; Z37.0 Single live birth; Z3A.37 37 weeks gestation of pregnancy